=== PATIENT | female | born 1980 ===

== ENCOUNTER 2024-11-28 13:25 | Outpatient (AMB) | payer OTHER, SELFPAY ==
[2024-11-28 13:28] VITALS: BP 118/78; PULSE 88; TEMP 36.8; O2SAT 96; BMI 33.3
--- NOTE | 2024-11-28 13:28 | AM.OFFWIN_ITS ---
Intake Vital Signs 11/28/24 13:28 11/28/24 13:34 Height 5 ft 11 in Weight 239 lb BMI 33.3 BP 118/78 122/80 Blood Pressure Location Lt brachial Rt brachial Position Sitting Sitting Pulse 88 Pulse Source Pulse Oximeter Temp 98.2 F Temp Source Oral Pulse Oximetry (%) 96 Oxygen Delivery Method Room Air Intake Visit Reasons: [employer]-High bp 148 over 70 Intake Note: pt presents with concerns for high blood pressure Allergies No Known Allergies Allergy (Verified 11/28/24 13:35) Do you need a note to return to daycare/school/sports/work: No HPI HPI Comments History of Present Illness Details History of Present Illness - The patient is a 44-year-old female pr esenting with concerns about elevated blood pressure readings. - The patient reported high blood pressu re readings ranging from 160 to 170 mmHg systolic during a dental visit four days ago, although his current reading is 122/80 mmHg. - The patient has been experiencing sign ificant stress due to the recent loss of his parents, which may contribute to elevated blood pressure readings. Also had a bad experience at a dentist resulting in broken teeth and sutures. - The patient is currently on fluoxetine for depression, which he takes in the morning. - The patient takes trazodone for sleep disturbances. - The patient forgot to take her medica tions on the day of the visit, which includes fluoxetine and cetirizine. Physical Exam General: Cooperative, healthy appearing, comfortable, no acute distress and well developed Orientation: Patient oriented x3 Limitations: No limitations Head: Normal to inspection Ears: Hearing grossly normal bilaterally Nose: Normal External nose present Face and sinus: Normal facial exam Eyes: Appearance normal, both eyes and all related structures Neck: Normal visual inspection and Yes full ROM Respiratory: Normal respiratory effort and able to speak in complete sentences. Skin: No rashes or lesions noted Neuro: Patient oriented x3 Extremities: Normal to inspection Review of Systems Const All systems reviewed & are unremarkable except as noted in HPI and below Physical Exam Vital Signs: Last Vital Signs Temp 98.2 F 11/28/24 13:28 Pulse 88 11/28/24 13:28 BP 122/80 11/28/24 13:34 Pulse Ox 96 11/28/24 13:28 Oxygen Delivery Method Room Air 11/28/24 13:28 BMI result Body Mass Index 33.3 Assessment & Plan Assessment & Plan (1) Elevated blood pressure reading without diagnosis of hypertension: Code(s): R03.0 - Elevated blood-pressure reading, without diagnosis of hypertension Plan: Plan - BP x 2 is normal today, likely elevated BP at dentist due to anxiety. - The patient was advised to monitor his blood pressure at home and report any consistently elevated readings. - Hydroxyzine was prescribed to manage anxiety, particularly before dental visits, to help relax the patient. - The patient was encouraged to contact her primary care provider to discuss her blood pressure and anxiety management further. Patient was informed and verbally consented to the use of an ambient scribe for clinic note documentation during this visit. Medications: New hydroxyzine HCl 25 mg PO Q6-8H PRN 14 tabs 0RF anxiety Coding Level of Care Code New Pt Level 3 (35805) Diagnoses Elevated blood pressure reading without diagnosis of hypertension R03.0
[2024-11-28 13:34] VITALS: BP 122/80
== END 2024-11-28 13:57 | disposition home or self-care (01) ==
PROVIDERS: Visit Provider Physician Assistant
DX: R03.0 Elevated blood-pressure reading, without diagnosis of hypertension (principal)

== ENCOUNTER → 2024-11-28 13:25 | Outpatient (BNVA) | payer OTHER, SELFPAY | PROVIDERS: Visit Provider Physician Assistant | DX: R03.0 Elevated blood-pressure reading, without diagnosis of hypertension (principal); Z63.4 Disappearance and death of family member; Z79.899 Other long term (current) drug therapy | CPT/HCPCS: 99202 ==